=== PATIENT | female | born 1980 | race Caucasian/White ===

== ENCOUNTER → 2018-07-02 | Outpatient (CLI) | payer OTHER | LOC: FIMAGING 13:09 | PROVIDERS: ATTEND Orthopaedic Surgery | DX: M25.852 Other specified joint disorders, left hip (principal); M16.12 Unilateral primary osteoarthritis, left hip ==

== ENCOUNTER → 2018-07-20 | Outpatient (CLI) | payer OTHER | LOC: FIMAGING 14:45 | PROVIDERS: ATTEND Orthopaedic Surgery | DX: M25.852 Other specified joint disorders, left hip (principal); Z01.818 Encounter for other preprocedural examination ==

== ENCOUNTER 2018-07-25 07:40 | Day surgery (SDC) | payer OTHER ==
[2018-07-25] MEDS ORDERED: BUPIVACAINE/EPI 0.5% 30 ML SDV ONE (07:58)
[2018-07-25] MEDS ORDERED: PREGABALIN 150 MG CAP PO ONE (08:16)
[2018-07-25] MEDS ORDERED: ACETAMINOPHEN 500 MG TAB PO ONE (08:16)
[2018-07-25] MEDS ORDERED: LIDOCAINE 1% 2 ML INJ ID PRN (08:16)
[2018-07-25] MEDS ORDERED: LR 1,000 ML IV SCH (08:16)
[2018-07-25] MEDS ORDERED: MORPHINE IU ONE (08:16)
[2018-07-25] MEDS ORDERED: ceFAZolin 2 GM/DEXTROSE 100 ML IV ONE (08:16)
[2018-07-25] MEDS ORDERED: LR 1,000 ML IV ONE (08:16)
[2018-07-25] MEDS ORDERED: ROPIVACAINE IU ONE (08:16)
[2018-07-25] MEDS ORDERED: MIDAZOLAM 2 MG/2 ML VIAL IVP ONE (08:41)
--- NOTE | 2018-07-25 08:41 | PDANEPAE ---
ANE History of Present Illness hip arthroscopy ANE Past Medical History - Cardiovascular History Hx Hypertension: No Hx Arrhythmias: Yes Hx Chest Pain: No Hx Coronary Artery / Peripheral Vascular Disease: No Hx CHF / Valvular Disease: No Hx Palpitations: No Cardiovascular History Comment: svt - Pulmonary History Hx COPD: No Hx Asthma/Reactive Airway Disease: No Hx Recent Upper Respiratory Infection: No Hx Oxygen in Use at Home: No Hx Sleep Apnea: No Sleep Apnea Screening Result - Last Documented: Negative - Neurologic History Hx Cerebrovascular Accident: No Hx Seizures: No Hx Dementia: No - Endocrine History Hx Diabetes: No Hypothyroid: No Hyperthyroid: No Obesity: mild - Renal History Hx Renal Disorders: No - Liver History Hx Hepatic Disorders: No - Neurological & Psychiatric Hx Hx Neurological and Psychiatric Disorders: Yes Neurological / Psychiatric History Comment: RLS. AUTONIMIC. depression/anxiety - Cancer History Hx Cancer: No - Congenital Disorder History Hx Congenital Disorders: No - GI History GERD: mild Hx Gastrointestinal Disorders: Yes Gastrointestinal History Comment: poor digestion,acid reflux IBS - Other Health History Other Health History: fibromyalgia - Chronic Pain History Chronic Pain: Yes (fibromyalgia) - Surgical History Prior Surgeries: 2013 hysterectomy bladder lift ANE Review of Systems Review of Systems: - Exercise capacity Exercise capacity: >=4 METS METS (RN): 5 METS ANE Patient History - Allergies Allergies/Adverse Reactions: No Known Allergies Allergy (Verified 07/24/18 15:14) - Home Medications Home medications: home medication list seen and reviewed Home Medications: Duloxetine HCl 07/24/18 [Last Taken Unknown] Nadolol 07/24/18 [Last Taken Unknown] Naltrexone 07/24/18 [Last Taken Unknown] Isle 5/325 (*) 07/24/18 [Last Taken Unknown] Nortriptyline HCl 07/24/18 [Last Taken Unknown] Ropinirole HCl 07/24/18 [Last Taken Unknown] Vitamin B-12 07/24/18 [Last Taken Unknown] Vitamin E 07/24/18 [Last Taken Unknown] - NPO status NPO Status: no food or drink >8 hours - Anes Hx Anes Hx: no prior problems - Smoking Hx Smoking Status: Never smoked - Family Anes Hx Family Hx Anesthesia Complications: none ANE Labs/Vital Signs - Vital Signs Height: 170.18 cm Weight: 92.986 kg ANE Physical Exam - Airway Mallampati Score: Class 2 Mouth exam: normal dental/mouth exam - Pulmonary Pulmonary: no respiratory distress - Cardiovascular Cardiovascular: regular rate and rhythym - ASA Status ASA Status: II ANE Anesthesia Plan Anesthesia Plan: general endotracheal anesthesia
--- NOTE | 2018-07-25 08:43 | PDHPUP ---
History & Physical Update H&P update statement: This history and physical update is based on an assessment of the patient which was completed after admission or registration (within 24 hours), but prior to the surgery/procedure. H&P update: H&P reviewed & patient examined, no change in patient's condition since H&P completed
[2018-07-25] MEDS ORDERED: SUCCINYLCHOLINE CHLORIDE 200 MG/10 ML SYR IVP ONE (08:45)
[2018-07-25] MEDS ORDERED: KETOROLAC 30 MG/1 ML SDV ONE (08:45)
[2018-07-25] MEDS ORDERED: ROCURONIUM 100 MG/10 ML VIAL ONE (08:45)
[2018-07-25] MEDS ORDERED: LIDOCAINE 2% 5 ML SDV ONE (08:45)
[2018-07-25] MEDS ORDERED: ONDANSETRON 4 MG/2 ML VIAL ONE (08:45)
[2018-07-25] MEDS ORDERED: DEXAMETHASONE 4 MG/ML VIAL ONE (08:45)
[2018-07-25] MEDS ORDERED: fentaNYL 100 MCG/2 ML INJ ONE ×3 (08:46→16:16)
[2018-07-25] MEDS ORDERED: PROPOFOL 200 MG/20 ML VIAL ONE (08:46)
[2018-07-25] MEDS ORDERED: PETROLAT,WHT/MIN OIL/SOD CHL 3.5 GM OPHT.OINT ONE ×3 (09:11)
[2018-07-25] MEDS ORDERED: EPINEPHrine 30 MG/30 ML MDV (0.1 MG/0.1 ML) ONE (09:56)
[2018-07-25] MEDS ORDERED: HYDROmorphONE/DILAUDID 2 MG/ML INJ ONE ×2 (11:50→16:29)
[2018-07-25] MEDS ORDERED: ROCURONIUM 50 MG/5 ML VIAL ONE ×2 (11:51→14:10)
[2018-07-25] MEDS ORDERED: ceFAZolin 1 GM VIAL ONE (13:49)
[2018-07-25] MEDS ORDERED: ALBUTEROL 3 ML DEYVIAL IH PRN (15:17)
[2018-07-25] MEDS ORDERED: LR 500 ML IV PRN (15:17)
[2018-07-25] MEDS ORDERED: DIAZEPAM 5 MG/ML 1 ML SYR IVP PRN (15:17)
[2018-07-25] MEDS ORDERED: HYDROCODONE/APAP 5/325 TAB PO PRN (15:17)
[2018-07-25] MEDS ORDERED: NALOXONE HCL 0.4 MG/ML INJ IVP PRN (15:17)
[2018-07-25] MEDS ORDERED: LABETALOL HCL 5 MG/ML 20 ML MDV IVP PRN (15:17)
[2018-07-25] MEDS ORDERED: ONDANSETRON 4 MG/2 ML VIAL IVP PRN (15:17)
[2018-07-25] MEDS ORDERED: PROMETHAZINE HCL 25 MG/ML INJ IVP PRN (15:17)
[2018-07-25] MEDS ORDERED: morphINE PF 5 MG/10 ML INJ ONE (15:29)
[2018-07-25] MEDS ORDERED: ROPIVACAINE HCL 150 MG/30 ML INJ ONE (15:29)
--- NOTE | 2018-07-25 15:51 | POSTANESTH ---
Post Anesthetic Evaluation Cardiovascular Status: Normal, Stable Respiratory Status: Normal, Stable Level of Consciousness/Mental Status: Can Participate in Eval Pain Control: Adequate, Prn Tx Ordered Nausea/Vomiting Control: Adequate, Prn Tx Ordered Complications Possibly Related to Anesthesia: None Noted
--- NOTE | 2018-07-25 16:09 | POSTOPPROG ---
Post Op Note Date of Operation: 07/25/18 Surgeon: Jude Adamson [employer] Teacher: LACHO Arvizu Anesthesiologist: MD Demario Anesthesia: GET(General Endotracheal) Pre-op Diagnosis: Left hip MALLORIE, labral tear Post-op Diagnosis: same Procedure: Left hip arthroscopy, femoro/acetabuloplasty, subspine decompression , Findings: labral reconstruction, capsular repair Inf/Abcess present in the surg proc area at time of surgery?: No EBL: 50-100 (50)
[2018-07-25] MEDS: fentaNYL 100 MCG/2 ML INJ IVP PRN ×2 (16:16→16:24)
[2018-07-25] MEDS: HYDROmorphONE/DILAUDID 2 MG/ML INJ IVP PRN ×2 (16:30→16:51)
[2018-07-25] MEDS ORDERED: HYDROCODONE/APAP 5/325 TAB ONE (18:08)
[2018-07-25 18:28] VITALS: BP 126/74
--- NOTE | 2018-08-01 00:44 | GOP ---
[f rep st] OPERATIVE REPORT DATE OF OPERATION: 07/25/2018 SURGEON: Jude Adamson MD PHARMACY OPERATIONS MANAGER: LACHO Bacon. Cut Out Stitcher was required for the procedure due to the complexity of the case, patient's condition for positioning, prepping and draping, driving the arthroscope, manipulation of instruments, and closure. ANESTHESIA: General. PREOPERATIVE DIAGNOSIS: Left hip labral tear, extreme pincer deformity with coxa profunda and borderline protrusio, cam with alpha angle greater than 60 degrees, subspine impingement. POSTOPERATIVE DIAGNOSIS: Chronic labral tear/degeneration, central chondral defect, synovitis, pincer deformity, cam with alpha angle greater than 60 degrees. PROCEDURE PERFORMED: Left hip arthroscopy with arthroscopic global acetabuloplasty, labral reconstruction using tibialis anterior allograft, synovectomy, femoroplasty in the peripheral compartment, subspinous decompression, and capsular repair. Fluoroscopic supervision greater than 1 hour. Modifier 22 for increased procedural services. The patient's condition and procedure were complicated by the patient's body habitus with a BMI of 33, making the use of standard hip arthroscopic instruments difficult, as well as the patient's own anatomy, requiring substantial increased effort for access to the joint as well as surgical repair and treatment of all conditions. Typical surgical time for this procedure is 2-3 hours, with hers lasting approximately 6. FINDINGS: Diagnostic arthroscopy revealed Seldes type 2 and 3 tear of the labrum, extending from 9 o'clock to 3 o'clock. The tear was felt to be irreparable and therefore treated with reconstruction using allograft. There was no significant ALAD lesion; however, in the central compartment of the joint , peripheral to the central fovea, there was grade 2 and 3 chondromalacia with osteophyte formation in the fossa. Remainder of the cartilage in the weightbearing areas of the femur and acetabulum was intact. There was extreme pincer morphology and an inability to access the joint in typical fashion. Ligamentum teres was intact. Significant inflammation in the iliopsoas bursa as well as the capsule-labral junction. Capsule was thickened, consistent with stiffness. In the peripheral compartment, there was cam morphology. SPECIMENS: None. ESTIMATED BLOOD LOSS: 50 cc. INDICATIONS: The patient had moderate severe pain, worsened by flexion, joint motion and impingement test for more than 3 months. 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 Patient's pain has been unresponsive to more than 3 months of conservative treatment, including activity modifications, avoidance of symptomatic motions, restriction of athletics, medications and physical therapy. Clinically, the patient had a positive impingement sign which reproduced pain. Radiographically , there was no evidence of advanced arthritis. The hip was grade Tonnis 0. She had intact joint space. There was no suspicion of outer bridge grade 3 or 4 cartilage damage. MRI demonstrated a labral tear. Patient was not indicated for total hip replacement, given the preoperative diagnostic imaging. A steroid injection did give her temporary but complete relief, confirming intra- articular source of pain. Given the failure to improve with conservative measures, the patient elected to proceed with arthroscopic treatment. The patient verbalized understanding of the risks and benefits of the procedure, and signed informed consent prior to the procedure. DESCRIPTION OF PROCEDURE: The patient was seen in the holding area. Operative site was signed. The patient was taken to the operating room. After smooth induction of general anesthesia, she was placed in supine position on a [employer] traction table with a well-padded perineal post. The genitalia were protected and the feet well secured. The hip was prepped and draped in usual sterile fashion. Operative site was confirmed by signature. Time-out was performed, allergies reviewed, and antibiotics administered. Traction was applied to the femur under fluoroscopy. Anterolateral portal was created with 11 blade. Spinal needle was introduced into the joint under fluoroscopy, and the joint was vented, achieving further distention. However, there was not significant enough distention to obtain enough joint access to place an arthroscope safely. Thus, traction was removed and decision was made to access the joint with outside technique. The patient's traction was completely removed. The patient's hip was flexed approximately 30-40 degrees. The arthroscope was introduced into the anterior superior aspect of the capsule under fluoroscopic guidance. A mid anterior portal was created and instruments were identified on the anterior superior aspect of the capsule. Electrocautery was used to divide the anterior superior aspect of the capsule under direct visualization and with fluoroscopic guidance. Once the capsule was completely divided, the labrum was identified and found to be irreparable, and was thus debrided and excised. A traction stitch was placed into the capsule to help preserve it for later closure. Global arthroscopic acetabuloplasty was performed with extensive use of fluoroscopic guidance. This was necessary in order to achieve access to the patient's joint. Diagnostic arthroscopy was then performed. Portals were switched frequently during this and all other portions of the procedure to access all parts of the joint. All parts of the joint were examined and probed, including the entire labrum, cartilage of the femur and acetabulum, ligamentum teres, acetabular fossa pincer lesion, which were probed under fluoroscopy to define the extent of the overhang. Subspinous decompression: The subspine decompression was undertaken. The capsule and inferior portion of the rectus femoris were elevated in the AIIS using the ablator radiofrequency wand, and 5.5 mm vania was used to perform a subspine decompression using fluoroscopic visualization. Acetabuloplasty: The acetabuloplasty was undertaken. The capsule was elevated from the pincer lesion using the ablator radiofrequency wand. A 5.5 mm vania was used to perform the acetabular rim trimming. A maximum of 7 mm of acetabular rim was resected laterally and posteriorly. A minimum of 3-4 mm was resected in the anterior aspect. This was carried out from approximately 8 o' clock to 4 o'clock using fluoroscopic visualization, to eliminate coxa profunda and decrease the lateral center edge angle to the pre-templated amount of bone. Femoroplasty: The damaged cartilage overlying the head-neck junction was removed with a curved shaver and electrocautery. Femoroplasty was performed using the 5.5 mm vania. This is done under extensive fluoroscopic visualization. The hip was moved between 0 and 90 degrees of flexion in between internal and external rotation. The fluoroscope was moved as necessary so that simultaneous arthroscopic and fluoroscopic views were obtained at all times. In this manner, appropriate head and neck offset and spherical contour were created. The femoroplasty surface was then polished using the vania. Dynamic impingement test was performed, taking the hip to 110 degrees of flexion , maximal internal rotation, and adduction with no impingement remaining. Labral reconstruction with allograft: A tibialis anterior allograft was prepared on the back table in single-strand fashion. The anterior end of the graft was anchored first and the graft was secured with anchors placed sequentially from anterior to posterior. The posterior aspect of the graft was secured with intrasubstance fixation and knot tying at approximately 8 o'clock. The excess graft was cut with electrocautery and pulled out through the posterolateral portal. Excellent buddhist of continuous labrum was achieved. Capsular repair: The capsular repair was then undertaken. A disposable cannula was placed in the mid anterior portal and the SlingShot suture-passing device was used to penetrate the proximal limb of the capsule and deliver a #2 Vicryl. The SlingShot was then inserted through the DALA portal and used to penetrate the distal limb of the capsule, retrieving the suture from the proximal aspect. This was tied on the outside aspect of the capsule using standard arthroscopic knot-tying technique. This was repeated for a total of 2 stitches. The joint was then lavaged, sucked dry. All instruments were withdrawn from the joint. The portals were closed using 3-0 Monocryl suture. Steri-Strips and sterile dressings applied and the hip was placed in a brace, locked at 0-90 degrees of flexion. The patient was safely awakened, extubated, and taken to recovery room in stable condition. DRAINS: None. COMPLICATIONS: None. IMPLANTS: Include Arthrex 2.9 mm PEEK PushLock anchor x1 with #2 FiberWire suture, Arthrex 3.0 mm Knotless SutureTak x5 with #2 FiberWire sutures, and then an Arthrex 3.0 mm double-loaded standard SutureTak. TRACTION TIME: #1 - 60 minutes. #2 - 70 minutes. There was at least 1 hour in between traction times. POSTOPERATIVE INSTRUCTIONS: 6 weeks on crutches, 20-pound weightbearing on the operative extremity, brace for postoperative stability to be worn for 6 weeks. Physical therapy is to be delayed for 6 weeks; however, use of stationary bike should begin immediately for a total of 8 weeks. All critical portions of the procedure were performed by , Dr. Adamson. This operative note was created me and I was immediately available for emergency cross-coverage at all times. /[id number]/MODL MTDD
== END 2018-07-25 18:50 | disposition home or self-care (01) ==
LOC: FSGY 07:40
PROVIDERS: ATTEND Orthopaedic Surgery
PROC: 0SU Lower Joints, Supplement (ICD-10-PCS; principal; 2018-07-25 09:30)
PROC: 0QQ54ZZ Repair Left Acetabulum, Percutaneous Endoscopic Approach (ICD-10-PCS; principal; 2018-07-25 09:30)
PROC: BQ111ZZ Fluoroscopy of Left Hip using Low Osmolar Contrast (ICD-10-PCS; principal; 2018-07-25 09:30)
PROC: 0SQB4ZZ Repair Left Hip Joint, Percutaneous Endoscopic Approach (ICD-10-PCS; principal; 2018-07-25 09:30)
DX: M25.852 Other specified joint disorders, left hip (principal); M65.88 Other synovitis and tenosynovitis, other site; M94.252 Chondromalacia, left hip; E66.9 Obesity, unspecified; Z68.33 Body mass index [BMI] 33.0-33.9, adult; M79.7 Fibromyalgia; F32.9 Major depressive disorder, single episode, unspecified; F41.9 Anxiety disorder, unspecified; K21.9 Gastro-esophageal reflux disease without esophagitis; G43.909 Migraine, unspecified, not intractable, without status migrainosus
CPT/HCPCS: C1713; C1762; J0171; J0330; J0690; J1100; J1170; J1885; J2250; J2270; J2274; J2405; J2704; J2795; J3010